=== PATIENT | female | born 1935 | race Two or more races ===

== ENCOUNTER 2021-08-12 05:46 | Inpatient (IN) | payer OTHER ==
[~2021-08-12] VITALS: Ht 157.5 cm; Wt 77.0 kg
[2021-08-12] MEDS ORDERED: SODIUM CHLORIDE 0.9% 1,000 ML IV ONE ×2 (06:15→12:30)
[2021-08-12 07:17] LABS: Basophils # (auto) 0 10 ^3/uL (0-0.2); Basophils % (auto) 0.2 % (0.0-2.0); Eosinophils # (auto) 0 10 ^3/uL (0-0.8); Eosinophils % (auto) 0.2 % (0.0-7.0); Hematocrit 46.3 % (36.0-46.0); Hemoglobin 15.8 g/dL (12.2-16.2); Lymphocytes # (auto) 0.6 10 ^3/uL (0.4-5.4); Lymphocytes % (auto) 10.8 % (10.0-50.0); Mean Corpuscular Hemoglobin 31.3 pg (28.0-32.0); Mean Corpuscular Hgb Conc. 34.2 g/dL (32.0-36.0); Mean Corpuscular Volume 91.5 fL (80.0-100.0); Monocytes # (auto) 0.7 10 ^3/uL (0-1.3); Monocytes % (auto) 11.8 % (0.0-12.0); Neutrophils # (auto) 4.3 10 ^3/uL (1.6-8.6); Nucleated Red Blood Cells % 0.2 %; Red Blood Cells 5.06 10^6/uL (4.0-5.20); Red Cell Distribution Width 13.6 % (11.8-14.3); White Blood Cell 5.7 10^3/uL (4.4-10.8)
[2021-08-12] MEDS ORDERED: DIPHENOXYLATE W/ATROPINE 2.5 MG TAB PO ONE (07:30)
[2021-08-12 07:33] LABS: Albumin 3.2 g/dL (3.4-5.0); Anion Gap 11 (5-15); Blood Urea Nitrogen 68 mg/dL (7-18); Calcium 8.6 mg/dL (8.5-10.1); Carbon Dioxide 20 mmol/L (21-32); Chloride 99 mmol/L (98-107); Glucose 117 mg/dL (74-106); Lipase 118 U/L (73-393); Magnesium 2.9 mg/dL (1.6-2.6); Potassium 3.1 mmol/L (3.5-5.1); Sodium 130 mmol/L (136-145)
[2021-08-12 07:39] LABS: Alanine Aminotransferase 27 U/L (13-56); Alkaline Phosphatase 69 U/L (45-117); Aspartate Aminotransferase 35 U/L (15-37); BUN/Creatinine Ratio 18.9; Bilirubin, Total 0.4 mg/dL (0.2-1.0); GFR African American 16 mL/min; GFR Non-African American 13 mL/min; Total Protein 7.6 g/dL (6.4-8.2)
[2021-08-12] MEDS ORDERED: metroNIDAZOLE 500MG/100ML 100 ML IV ONE (09:15)
[2021-08-12] MEDS ORDERED: cefTRIAXone 1GM/50ML D5W 50 ML IV ONE (09:15)
[2021-08-12 10:19] LABS: Urine Bacteria FEW /hpf (None Seen); Urine Blood 2+ /uL (Negative); Urine Hyaline Cast FEW /lpf (0 - 2); Urine Mucus FEW (None Seen); Urine WBC 79 /hpf (0 - 5); Urine WBC Clumps PRESENT /hpf (None Seen)
[2021-08-12] MEDS ORDERED: MORPHINE SULFATE INJECTION 2 MG/ML SYRG IV PRN ×2 (12:45)
[2021-08-12] MEDS ORDERED: HYDROcodone-ACET 5/325MG TAB PO PRN (12:45)
[2021-08-12] MEDS ORDERED: ONDANSETRON HCL 4 MG/2 ML VIAL IV PRN (12:45)
[2021-08-12] MEDS ORDERED: POTASSIUM EFFERVESENT TAB 25 MEQ PO ONE (12:45)
[2021-08-12] MEDS ORDERED: NITROGLYCERIN 0.4 MG SL TAB SL PRN (12:45)
[2021-08-12] MEDS ORDERED: ACETAMINOPHEN 500 MG TAB PO PRN (12:45)
[2021-08-12] MEDS: SOD CHL 0.45% 1,000 ML IV SCH ×2 (12:45→23:00)
[2021-08-12] MEDS ORDERED: metroNIDAZOLE 500MG/100ML 100 ML IV SCH (14:00)
[2021-08-12 14:54] VITALS: BP 122/59
[2021-08-12 15:40] VITALS: BP 120/65
[2021-08-12 17:00] VITALS: BP 120/65
[2021-08-12 17:32] LABS: Potassium 3.3 mmol/L (3.5-5.1)
[2021-08-12 18:03] LABS: Magnesium 2.5 mg/dL (1.6-2.6); Phosphorus 3.6 mg/dL (2.5-4.90)
[2021-08-12 19:02] LABS: Protein, Urine 140.8 mg/dL (0.0-11.9)
[2021-08-12] MEDS: IPRATROPIUM BROM 0.5 MG/2.5ML INH SOL NEB SCH (19:07)
[2021-08-12] MEDS: BUDESONIDE (INHALATION) 0.5 MG/2 ML NEB NEB SCH (19:07)
[2021-08-12] MEDS: ALBUTEROL SULF 2.5 MG/0.5ML(0.5%) NEB SOLN NEB SCH (19:07)
[2021-08-12] MEDS: metroNIDAZOLE 500 MG TAB PO SCH (21:02)
[2021-08-12 22:00] VITALS: BP 102/46
[2021-08-13] MEDS: metroNIDAZOLE 500 MG TAB PO SCH ×3 (03:47→20:36)
[2021-08-13 05:00] VITALS: BP 104/49
[2021-08-13] MEDS ORDERED: VANCOMYCIN PER PHARMACY 0 MG IV SCH (05:45)
[2021-08-13 06:14] LABS: Basophils # (auto) 0 10 ^3/uL (0-0.2); Basophils % (auto) 0.3 % (0.0-2.0); Eosinophils # (auto) 0.1 10 ^3/uL (0-0.8); Eosinophils % (auto) 2.8 % (0.0-7.0); Hematocrit 39.1 % (36.0-46.0); Hemoglobin 13.4 g/dL (12.2-16.2); Lymphocytes % (auto) 20.5 % (10.0-50.0); Mean Corpuscular Hgb Conc. 34.3 g/dL (32.0-36.0); Mean Corpuscular Volume 90.4 fL (80.0-100.0); Monocytes # (auto) 0.7 10 ^3/uL (0-1.3); Monocytes % (auto) 13.7 % (0.0-12.0); Neutrophils # (auto) 3.2 10 ^3/uL (1.6-8.6); Neutrophils % (auto) 62.7 % (37.0-80.0); Nucleated Red Blood Cells % 0.1 %; Red Blood Cells 4.33 10^6/uL (4.0-5.20); Red Cell Distribution Width 13.3 % (11.8-14.3); White Blood Cell 5.1 10^3/uL (4.4-10.8)
[2021-08-13] MEDS: ALBUTEROL SULF 2.5 MG/0.5ML(0.5%) NEB SOLN NEB SCH ×3 (06:14→18:00)
[2021-08-13] MEDS: IPRATROPIUM BROM 0.5 MG/2.5ML INH SOL NEB SCH ×3 (06:14→18:00)
[2021-08-13] MEDS: BUDESONIDE (INHALATION) 0.5 MG/2 ML NEB NEB SCH ×3 (06:14→22:00)
[2021-08-13 06:29] LABS: Potassium 3.1 mmol/L (3.5-5.1)
[2021-08-13 06:33] LABS: Calcium 7.7 mg/dL (8.5-10.1)
[2021-08-13] MEDS: SOD CHL 0.45% 1,000 ML IV SCH (08:45)
[2021-08-13 09:00] VITALS: BP 105/56
[2021-08-13] MEDS ORDERED: VANCOMYCIN 1GM/250ML 250 ML IV ONE (09:00)
[2021-08-13] MEDS: cefTRIAXone 1GM/50ML D5W 50 ML IV SCH (09:15)
[2021-08-13] MEDS ORDERED: POTASSIUM EFFERVESENT TAB 25 MEQ PO ONE (09:30)
[2021-08-13] MEDS ORDERED: POTASSIUM CHL 20 Meq TABLET PO ONE ×2 (10:00→10:30)
[2021-08-13] MEDS: SOD CHL 0.9%/ KCL 20MEQ 1,000 ML IV SCH (12:01)
[2021-08-13 13:00] VITALS: BP 110/51
[2021-08-13 22:00] VITALS: BP 92/37
[2021-08-14] MEDS: SOD CHL 0.9%/ KCL 20MEQ 1,000 ML IV SCH ×3 (00:53→21:21)
[2021-08-14] MEDS: metroNIDAZOLE 500 MG TAB PO SCH ×3 (04:51→21:13)
[2021-08-14 05:00] VITALS: BP 111/51
[2021-08-14 05:53] LABS: Basophils # (auto) 0 10 ^3/uL (0-0.2); Basophils % (auto) 0.5 % (0.0-2.0); Eosinophils # (auto) 0.2 10 ^3/uL (0-0.8); Eosinophils % (auto) 4.3 % (0.0-7.0); Hematocrit 37.1 % (36.0-46.0); Hemoglobin 12.7 g/dL (12.2-16.2); Lymphocytes # (auto) 1.2 10 ^3/uL (0.4-5.4); Lymphocytes % (auto) 20.9 % (10.0-50.0); Mean Corpuscular Hemoglobin 30.9 pg (28.0-32.0); Mean Corpuscular Hgb Conc. 34.3 g/dL (32.0-36.0); Mean Corpuscular Volume 90.1 fL (80.0-100.0); Monocytes # (auto) 0.7 10 ^3/uL (0-1.3); Monocytes % (auto) 12.8 % (0.0-12.0); Neutrophils # (auto) 3.5 10 ^3/uL (1.6-8.6); Neutrophils % (auto) 61.5 % (37.0-80.0); Nucleated Red Blood Cells % 0.1 %; Red Blood Cells 4.11 10^6/uL (4.0-5.20); Red Cell Distribution Width 13.5 % (11.8-14.3); White Blood Cell 5.7 10^3/uL (4.4-10.8)
[2021-08-14 06:18] LABS: Calcium 8.2 mg/dL (8.5-10.1); Magnesium 2.7 mg/dL (1.6-2.6); Potassium 3.5 mmol/L (3.5-5.1)
[2021-08-14 06:20] LABS: BUN/Creatinine Ratio 27.3
[2021-08-14] MEDS: ALBUTEROL SULF 2.5 MG/0.5ML(0.5%) NEB SOLN NEB SCH ×3 (06:54→19:08)
[2021-08-14] MEDS: BUDESONIDE (INHALATION) 0.5 MG/2 ML NEB NEB SCH ×2 (06:54→19:08)
[2021-08-14] MEDS: IPRATROPIUM BROM 0.5 MG/2.5ML INH SOL NEB SCH ×3 (06:54→19:08)
[2021-08-14 09:00] VITALS: BP 120/60
[2021-08-14] MEDS ORDERED: LOPERAMIDE HCL 2 MG CAP PO ONE (10:00)
[2021-08-14] MEDS: cefTRIAXone 1GM/50ML D5W 50 ML IV SCH (10:49)
[2021-08-14 13:00] VITALS: BP 108/62
[2021-08-14] MEDS: HYDROCORTONE 1% TOPICAL CREAM 30 GM TUBE TOP SCH ×3 (14:25→21:13)
[2021-08-14 17:00] VITALS: BP 92/53
[2021-08-14 22:24] VITALS: BP 110/54
[2021-08-15] MEDS: metroNIDAZOLE 500 MG TAB PO SCH (04:43)
[2021-08-15 05:28] VITALS: BP 110/65
[2021-08-15 06:24] LABS: Potassium 3.6 mmol/L (3.5-5.1)
[2021-08-15 06:33] LABS: BUN/Creatinine Ratio 20.5; Calcium 8.1 mg/dL (8.5-10.1)
[2021-08-15] MEDS: ALBUTEROL SULF 2.5 MG/0.5ML(0.5%) NEB SOLN NEB SCH ×2 (06:51→12:00)
[2021-08-15] MEDS: IPRATROPIUM BROM 0.5 MG/2.5ML INH SOL NEB SCH ×2 (06:51→12:00)
[2021-08-15 08:00] VITALS: BP 96/52
[2021-08-15] MEDS: cefTRIAXone 1GM/50ML D5W 50 ML IV SCH ×2 (09:00→09:21)
[2021-08-15] MEDS: BUDESONIDE (INHALATION) 0.5 MG/2 ML NEB NEB SCH (10:00)
[2021-08-15 12:00] VITALS: BP 108/53
== END 2021-08-15 15:15 | disposition home or self-care (01) | DRG 683 ==
LOC: EDBD 05:46 → ER 05:46 → TELE 12:38 → TELE-WESTW 15:20
PROVIDERS: ADMIT Nurse Practitioner Acute Care; ATTEND Internal Medicine Geriatric Medicine
DX: N17.9 Acute kidney failure, unspecified (principal); K57.32 Diverticulitis of large intestine without perforation or abscess without bleeding; E44.1 Mild protein-calorie malnutrition; N39.0 Urinary tract infection, site not specified; J96.10 Chronic respiratory failure, unspecified whether with hypoxia or hypercapnia; I12.0 Hypertensive chronic kidney disease with stage 5 chronic kidney disease or end stage renal disease; E87.6 Hypokalemia; N18.4 Chronic kidney disease, stage 4 (severe); K52.9 Noninfective gastroenteritis and colitis, unspecified; J44.9 Chronic obstructive pulmonary disease, unspecified; E03.9 Hypothyroidism, unspecified; Z20.822 Contact with and (suspected) exposure to COVID-19; E78.5 Hyperlipidemia, unspecified; E86.0 Dehydration; Z85.3 Personal history of malignant neoplasm of breast; Z87.891 Personal history of nicotine dependence; Z90.11 Acquired absence of right breast and nipple; Z68.31 Body mass index [BMI] 31.0-31.9, adult
CPT/HCPCS: 36415; 51702; 74176; 76775; 80048; 80053; 80202; 81001; 82570; 83605; 83690; 83735; 84100; 84156; 84300; 84484; 85025; 87040; 87045; 87077; 87086; 87088; 87186; 87426; 87427; 87493; 93005; 94640; 96361; 96365; 96366; 96367; 97116; 97530; G0378; J0696; J3490